=== PATIENT | male | born 1985 | race African-American/Black ===

== ENCOUNTER → 2016-09-27 23:00 | Emergency (ER) | payer SELFPAY ==
--- NOTE | 2016-09-27 23:18 | ED.ADGEN ---
Adult General HPI HPI Patient is a 31 year old male who presents with above hx and complaints of chest pain. Pt. placed in computer but never completed check in. Left with his family. Pt. not seen by any medical staff. Pt. refused to stay to complete check in. Physical Exam Physical Exam Pt. not seen left prior to completing check in. EKG EKG [] Radiology/Procedures Radiology/Procedures [] Course & Med Decision Making Course & Med Decision Making Pertinent Labs and Imaging studies reviewed. (See chart for details) Pt. left before completing check in. Pt. encouraged reportedly to return if wished to be seen. [] Final Impression Final Impression 1. Hx. Chest Pain 2. Pt. Not seen- Left before completing check in. [] Problems: Dragon Disclaimer Dragon Disclaimer This electronic medical record was generated, in whole or in part, using a voice recognition dictation system. SOLIS KENNEDY MD Sep 27, 2016 23:18
== END | disposition home or self-care (01) ==
LOC: ER 23:00
DX: R07.9 Chest pain, unspecified (principal); Z53.21 Procedure and treatment not carried out due to patient leaving prior to being seen by health care provider